=== PATIENT | male | born 1945 ===

== ENCOUNTER 2019-07-26 06:25 | Day surgery (SDC) | payer OTHER ==
[~2019-07-26 06:25] MED LIST: AMLODIPINE PO; BICALUTAMIDE50 MG PO; LIPITOR20 MG PO; LISINOPRIL-HCT1 EAC1 PO; METOPOLOL PO
== END 2019-07-26 13:10 | disposition home or self-care (01) ==
LOC: CIR.AMB 06:25
DX: G56.01 Carpal tunnel syndrome, right upper limb (principal)